=== PATIENT | male | born 1990 | race African-American/Black ===

== ENCOUNTER 2017-11-06 02:44 | Emergency (ER) | payer MEDICAID ==
[~2017-11-06] VITALS: Ht 175.3 cm; Wt 68.0 kg
[2017-11-06] MEDS ORDERED: ALBUTEROL SULFATE 2.5 MG/0.5 ML NEB SOLUTION NEB ONE (03:00)
[2017-11-06] MEDS ORDERED: IPRATROPIUM BROMIDE 0.5 MG/2.5 ML NEB SOLUTION NEB ONE (03:00)
[2017-11-06 04:08] VITALS: BP 129/84
[2017-11-07] MEDS ORDERED: ALBU8.5H8 IH (15:51)
== END 2017-11-06 04:09 | disposition home or self-care (01) ==
LOC: EMS 02:45
DX: J45.901 Unspecified asthma with (acute) exacerbation (principal); F17.210 Nicotine dependence, cigarettes, uncomplicated
CPT/HCPCS: 94640; 99283; 99406; J7613

== ENCOUNTER 2017-11-07 15:48 | Emergency (ER) | payer MEDICAID ==
[~2017-11-07] VITALS: Ht 180.3 cm; Wt 68.2 kg
[2017-11-07] MEDS ORDERED: ALBU8.5H8 IH (15:51)
[2017-11-07 16:11] VITALS: BP 141/91
== END 2017-11-07 16:51 | disposition home or self-care (01) ==
LOC: EMS 15:49
DX: Z76.0 Encounter for issue of repeat prescription (principal); J45.901 Unspecified asthma with (acute) exacerbation; F17.210 Nicotine dependence, cigarettes, uncomplicated; Z71.6 Tobacco abuse counseling; Z59.0 Homelessness
CPT/HCPCS: 99283; 99406